=== PATIENT | male | born 1955 | race Caucasian/White ===

== ENCOUNTER 2017-07-05 07:14 | Day surgery (SDC) | payer OTHER ==
[2017-07-05 07:38] VITALS: BMI 28.5
--- NOTE | 2017-07-05 08:27 | PDOC ---
History of Present Illness <Kathryn Juárez - Last Filed: 07/05/17 10:32> - History of Present Illness Initial Comments: 07/05/17 10:49 The patient is a 62 year old male, with a significant past medical history of CAD s/p stents x2 (on aspirin and Plavix), hyperlipidemia, who presents to the emergency department sent by Dr. Eduardo Love for surgical repair of his umbilical hernia. He states the hernia has gotten larger in size since the summer of this year. He also reports experiencing intermittent discomofort more frequently this year. He denies any pain at this time. He denies chest pain, shortness of breath, headache and dizziness. He denies fever, chills, nausea, vomit, diarrhea and constipation. He denies dysuria, frequency, urgency and hematuria. Allergies: NKDA Past surgical history: tonsillectomy, stents x2 Social history: social EtOH consumption. Denies tobacco use. PCP - Dr. Madrigal <Genoveva Oh - Last Filed: 07/05/17 11:00> - General Chief Complaint: Pain Stated Complaint: admission, O.R HERNIA Time Seen by Provider: 07/05/17 08:27 Past History <Kathryn Juárez - Last Filed: 07/05/17 10:32> - Past Medical History Cardiac Disorders: Yes (CAD) COPD: No Hypercholesterolemia: Yes - Surgical History Cardiac Surgery: Yes (STENT) - Immunization History Td Vaccination: (unknown) TDAP Vaccination: No - Suicide/Smoking/Psychosocial Hx Smoking Status: No Smoking History: Former smoker Have you smoked in the past 12 months: No Number of Cigarettes Smoked Daily: 0 Information on smoking cessation initiated: No Hx Alcohol Use: No Drug/Substance Use Hx: No Substance Use Type: None <Genoveva Oh - Last Filed: 07/05/17 11:00> - Past Medical History Allergies/Adverse Reactions: Allergies Allergy/AdvReac Type Severity Reaction Status Date / Time No Known Allergies Allergy Verified 07/05/17 07:28 Home Medications: Ambulatory Orders Aspirin [ASA -] 81 mg PO DAILY 07/05/17 Rosuvastatin Calcium [Crestor] 40 mg PO DAILY 07/05/17 Review of Systems - Review of Systems Comments:: 07/05/17 10:50 GENERAL/CONSTITUTIONAL: No fever or chills. No weakness. HEAD, EYES, EARS, NOSE AND THROAT: No change in vision. No ear pain or discharge. No sore throat. GASTROINTESTINAL: (+) umbilical hernia. No nausea, vomiting, diarrhea or constipation. GENITOURINARY: No dysuria, frequency, or change in urination. CARDIOVASCULAR: No chest pain or shortness of breath. RESPIRATORY: No cough, wheezing, or hemoptysis. MUSCULOSKELETAL: No joint or muscle swelling or pain. No neck or back pain. SKIN: No rash NEUROLOGIC: No headache, vertigo, loss of consciousness, or change in strength/ sensation. ENDOCRINE: No increased thirst. No abnormal weight change. HEMATOLOGIC/LYMPHATIC: No anemia, easy bleeding, or history of blood clots. ALLERGIC/IMMUNOLOGIC: No hives or skin allergy. <Genoveva Oh - Last Filed: 07/05/17 11:00> *Physical Exam - Vital Signs Last Vital Signs Temp Pulse Resp BP Pulse Ox 98.0 F 60 18 144/76 97 07/05/17 07:28 07/05/17 07:28 07/05/17 07:28 07/05/17 07:28 07/05/17 07:28 <Kathryn Juárez - Last Filed: 07/05/17 10:32> - Vital Signs Last Vital Signs Temp Pulse Resp BP Pulse Ox 98.0 F 60 18 144/76 97 07/05/17 07:28 07/05/17 07:28 07/05/17 07:28 07/05/17 07:28 07/05/17 07:28 - Physical Exam Comments: 07/05/17 10:51 GENERAL: Awake, alert, and fully oriented, in no acute distress HEAD: No signs of trauma EYES: PERRLA, EOMI, sclera anicteric, conjunctiva clear ENT: Auricles normal inspection, hearing grossly normal, nares patent, oropharynx clear without exudates. Moist mucosa NECK: Normal ROM, supple, no lymphadenopathy, JVD, or masses LUNGS: Breath sounds equal, clear to auscultation bilaterally. No wheezes, and no crackles HEART: Regular rate and rhythm, normal S1 and S2, no murmurs, rubs or gallops ABDOMEN: (+) soft, reducible umbilical hernia without evidence of incarceration. Soft, nontender, normoactive bowel sounds. No guarding, no rebound. EXTREMITIES: Normal range of motion, no edema. No clubbing or cyanosis. No cords, erythema, or tenderness BACK: No midline spinal tenderness in cervical/thoracic/lumbar region NEUROLOGICAL: Normal speech, cranial nerves intact, negative pronator drift, 5/ 5 strength in all 4 extremities, normal sensation to light touch in all 4 extremities, normal cerebellar exam, normal gait, normal reflexes and tone SKIN: Warm, Dry, normal turgor, no rashes or lesions noted. <Genoveva Oh - Last Filed: 07/05/17 11:00> Heart Score/ECG Review #1 07/05/17 10:57 Twelve-lead EKG was performed and reviewed by me. Normal sinus rhythm, rate 63. Normal axis. No ST elevations. <Genoveva Oh - Last Filed: 07/05/17 11:00> ED Treatment Course - LABORATORY CBC & Chemistry Diagram: 07/05/17 08:23 07/05/17 08:23 <Kathryn Juárez - Last Filed: 07/05/17 10:32> - LABORATORY CBC & Chemistry Diagram: 07/05/17 08:23 07/05/17 08:23 - RADIOLOGY Radiology Studies Ordered: Category Date Time Status CHEST X-RAY PORTABLE* [RAD] Stat Radiology 07/05/17 08:01 Taken <Genoveva Oh - Last Filed: 07/05/17 11:00> Medical Decision Making - Medical Decision Making 07/05/17 08:35 Dr. Love was paged via phone answering service at this time requesting a call back for doctor to doctor regarding this patient's admission for surgical hernia repair. 07/05/17 09:00 Dr. Love was paged at the office requesting a call back for doctor to doctor consult. The supervisor tank cleaning assured me she will inform Dr. Love to call as soon as possible. 07/05/17 10:34 Dr. Love was called on his cell phone and a voice mail was left requesting a call back regarding this patient. <Kathryn Juárez - Last Filed: 07/05/17 10:32> - Medical Decision Making 07/05/17 10:51 62-year-old male presents for admission for hernia repair. Vitals unremarkable. Exam with soft reducible hernia with no skin changes and no abdominal distention. Will admit to Dr. Love for further management. Case discussed in detail with admitting physician including history, physical exam and ancillary studies. Admitting physician has assumed care for the patient, will follow all pending diagnostics and will complete the evaluation and treatment. <Genoveva Oh - Last Filed: 07/05/17 11:00> *DC/Admit/Observation/Transfer - Attestations Scribe Attestion: 07/05/17 08:37 Documentation prepared by Kathryn Juárez, acting as medical education coordinator for Genoveva Oh MD, <Kathryn Juárez - Last Filed: 07/05/17 10:32> - Discharge Dispostion Admit: Yes - Attestations Physician Attestion: 07/05/17 10:54 I, Dr. Genoveva Oh MD, attest that this document has been prepared under my direction and personally reviewed by me in its entirety. I further attest, that it accurately reflects all work, treatment, procedures and medical decision -making performed by me. <Genoveva Oh - Last Filed: 07/05/17 11:00> Diagnosis at time of Disposition: Umbilical hernia - Discharge Dispostion Condition at time of disposition: Stable - Referrals Referrals: Yung Madrigal MD [Primary Care Provider] - - Patient Instructions - Post Discharge Activity
[2017-07-05 09:11] LABS: BASOPHIL 2.5 % (0-2.0); EOSINOPHIL 4.4 % (0-4.5); MCH 30.1 pg (25.7-33.7); MEAN CELL VOLUME 91.2 fl (80-96); MEAN PLT VOLUME 9.2 fl (7.5-11.1); NEUTROPHILS 51.9 % (42.8-82.8); PLATELET COUNT 183 K/MM3 (134-434); RDW 13.8 % (11.9-15.9); WHITE BLOOD COUNT 5.8 K/mm3 (4.0-10.0)
[2017-07-05 09:23] LABS: INR 1.01 (0.82-1.09); PROTHROMBIN TIME (PATIENT) 11.4 SEC (9.98-11.88)
[2017-07-05 09:26] LABS: ACTIVATED PTT 30.5 SECONDS (26.9-34.4)
[2017-07-05 09:52] LABS: ALBUMIN 3.9 g/dl (3.4-5.0); ANION GAP 6 (8-16); BILIRUBIN,TOTAL 0.3 mg/dL (0.2-1.0); CO2 30 mmol/L (21-32); CREATININE 0.8 mg/dL (0.7-1.3); GLUCOSE,RANDOM 83 mg/dL (74-106); SGOT/AST 40 U/L (15-37); SGPT/ALT 57 U/L (12-78); TOT PROT 7.3 g/dl (6.4-8.2)
[2017-07-05 09:53] LABS: ALK PHOS 56 U/L (45-117)
[2017-07-05] MEDS ORDERED: BUPIVACAINE HCL/PF 0.5% (5MG/ML) 10 ML VIAL ONE (10:30)
[2017-07-05] MEDS ORDERED: fentaNYL CITRATE 250 MCG/5 ML VIAL ONE (11:02)
[2017-07-05] MEDS ORDERED: PROPOFOL 20 ML ONE (11:02)
[2017-07-05] MEDS ORDERED: MIDAZOLAM HCL 2 MG/2 ML SINGLE DOSE VIAL ONE ×2 (11:02)
[2017-07-05] MEDS ORDERED: SUCCINYLCHOLINE CHLORIDE 200 MG/10 ML VIAL ONE (11:08)
[2017-07-05] MEDS ORDERED: ROCURONIUM BROMIDE 50 MG/5 ML VIAL ONE ×2 (11:09→11:44)
--- NOTE | 2017-07-05 11:13 | CONSULT ---
Consult Consult Specialty:: Surgery Reason for Consultation:: Supraumbilical hernia with pain - History of Present Illness Chief Complaint: Pain near umbilical hernia - History Source History Provided By: Patient Limitations to Obtaining History: No Limitations - Alcohol/Substance Use Hx Alcohol Use: No - Smoking History Smoking history: Former smoker Have you smoked in the past 12 months: No Aproximately how many cigarettes per day: 0 Home Medications - Allergies Allergies/Adverse Reactions: Allergies Allergy/AdvReac Type Severity Reaction Status Date / Time No Known Allergies Allergy Verified 07/05/17 07:28 - Home Medications Home Medications: Ambulatory Orders Aspirin [ASA -] 81 mg PO DAILY 07/05/17 Rosuvastatin Calcium [Crestor] 40 mg PO DAILY 07/05/17 Family Disease History - Family Disease History Family History: Unremarkable Review of Systems - Review of Systems Constitutional: denies: Chills, Fever HENT: reports: No Symptoms Neck: reports: No Symptoms Cardiovascular: denies: Chest Pain Respiratory: denies: Cough Gastrointestinal: reports: Abdominal Pain. denies: Diarrhea Neurological: denies: Change in LOC Pain Intensity: 3 Physical Exam Vital Signs: Vital Signs Temperature 98.0 F 07/05/17 07:28 Pulse Rate 59 L 07/05/17 10:30 Respiratory Rate 18 07/05/17 10:30 Blood Pressure 155/86 07/05/17 10:30 O2 Sat by Pulse Oximetry (%) 97 07/05/17 10:30 Constitutional: No: No Distress Eyes: Yes: WNL HENT: Yes: WNL Neck: Yes: Supple Cardiovascular: Yes: Regular Rate and Rhythm Respiratory: Yes: CTA Bilaterally Gastrointestinal: Yes: Soft, Tenderness (+ moderate supraaumbilcal tenderness, no erythema, + incarcarated supraumbilcal hernia- partially but not fully reducible) Extremities: Yes: WNL Neurological: Yes: Alert, Oriented Labs: CBC, BMP 07/05/17 08:23 07/05/17 08:23 Problem List - Problems (1) Supraumbilical hernia Code(s): K43.9 - VENTRAL HERNIA WITHOUT OBSTRUCTION OR GANGRENE (2) Incarcerated ventral hernia Code(s): K46.0 - UNSP ABDOMINAL HERNIA WITH OBSTRUCTION, WITHOUT GANGRENE Assessment/Plan Incarcerated supraumbilical hernia For robotic possible open repair with possible mesh
[2017-07-05] MEDS ORDERED: ceFAZolin SODIUM 1 GM VIAL ONE (11:36)
[2017-07-05] MEDS ORDERED: ceFAZolin SODIUM 1 GM VIAL IVPB ONE (12:03)
[2017-07-05] MEDS ORDERED: hydrALAZINE HCL 20 MG/ML VIAL ONE (12:26)
[2017-07-05] MEDS ORDERED: GLYCOPYRROLATE 0.2 MG/1 ML VIAL ONE (12:43)
[2017-07-05] MEDS ORDERED: NEOSTIGMINE METHYLSULFATE 0.5 MG/ML - 10 ML MDV ONE (12:43)
[2017-07-05] MEDS ORDERED: BUPIVACAINE HCL/PF 0.5% (5MG/ML) 10 ML VIAL IJ ONE (12:47)
[2017-07-05] MEDS ORDERED: LIDOCAINE HCL/PF 2% SDV 5ML VIAL ONE (13:30)
--- NOTE | 2017-07-05 13:51 | SURG ---
Surgery Solderer Dipper Note Solderer Dipper: Mathew Abbasi PA-C Date of Service: 07/05/17 Diagnosis: Incarcerated ventral hernia (contents viable omentem) Procedure: Robotic ventral hernia repair with mesh I was present for the entirety of the operative procedure. For further detail, please refer to operative report. Visit type - Case Type Case Type: ED Admission - Emergency Emergency Visit: Yes Care time: The patient presented to the Emergency Department on the above date and was hospitalized for further evaluation of their emergent condition. - New patient This patient is new to me today: Yes Date on this admission: 07/05/17
[2017-07-05] MEDS ORDERED: ONDANSETRON 4 MG/2 ML VIAL IVPUSH PRN ×2 (13:53→14:08)
[2017-07-05] MEDS ORDERED: LACTATED RINGERS SOLUTION 1,000 ML IV SCH (14:00)
--- NOTE | 2017-07-05 14:06 | OP ---
Operative Note - Note: Operative Date: 07/05/17 Pre-Operative Diagnosis: Incarcerated supraaumbilical hernia Operation: Robotic repair of incarcerated supraumbilical hernia with mesh Findings: Incarcerated omentum Post-Operative Diagnosis: Same as Pre-op Surgeon: Eduardo Love Grain Drier: Mathew Abbasi Anesthesia: General Specimens Removed: hernia content Estimated Blood Loss (mls): 20 Operative Report Dictated: Yes
[2017-07-05] MEDS ORDERED: ACETAMINOPHEN 325 MG TABLET (FP) PO PRN (14:08)
[2017-07-05] MEDS ORDERED: D5-1/2NS+20 MEQ KCL - 20 MEQ/1,000 ML INFUS.BAG IV SCH (14:15)
[2017-07-05] MEDS: HYDROmorphone HCL CARPU-JECT 1 MG/1 ML DISP.SYRIN IVPB PRN ×4 (14:35→23:32)
[2017-07-05] MEDS ORDERED: HYDROmorphone HCL CARPU-JECT 2 MG/1 ML DISP.SYRIN ONE (14:36)
--- NOTE | 2017-07-05 14:39 | SPEC ---
DATE OF OPERATION: 07/05/2017 SURGEON: Eduardo Love MD DIRECTOR OF CATH LAB: KATHY Arora PREOPERATIVE DIAGNOSIS: Incarcerated supraumbilical hernia. POSTOPERATIVE DIAGNOSIS: Incarcerated supraumbilical hernia with incarcerated omentum. OPERATION: Robotic repair of incarcerated supraumbilical hernia with mesh. SPECIMEN: Hernia contents. ESTIMATED BLOOD LOSS: 20 mL. DRAINS: None. ANESTHESIA: GET. MESH: 12 cm circular Symbotex mesh. REASON FOR PROCEDURE: This 62-year-old gentleman presented to the emergency room with pain and a supraumbilical hernia defect. It was unable to be manually reduced and therefore he was consented for a robotic, possible open repair of supraumbilical/ventral/umbilical hernia with mesh. RISKS AND BENEFITS: The risks and benefits of a robotic, possible open umbilical/ventral hernia repair with possible mesh were explained. These included bleeding, infection, recurrence of hernia, [place], DVT, PE, new hernia, injury to surrounding structures including the colon, bowel, bladder, spleen, other intra-abdominal organs, vessel injury, nerve injury, mesh infection and as some of the possible complications. The patient understood and signed informed consent. FINDINGS: Incarcerated omentum at the supraumbilical hernia defect. A 12-cm Symbotex mesh was used and secured. DESCRIPTION OF PROCEDURE: The patient was placed supine on the operating room table. The patient underwent general endotracheal intubation. The arms were tucked at the side and the patient was placed on the beanbag device. The abdomen was prepped and draped in the usual sterile fashion. A time-out was performed. An incision was made in the left upper quadrant and entrance into the abdominal cavity was obtained using an 8-mm robotic optical trocar under direct visualization with the laparoscope. Pneumoperitoneum was established. Subsequently, an 8-mm robotic trocar was placed in the left lateral abdominal wall and another 8-mm trocar placed in the left lower quadrant. The patient was placed in right lateral decubitus position. The robot was brought over the field and docked. Dissection was performed at the console. All adherent omentum and bowel was carefully freed from the anterior abdominal wall. Meticulous dissection was performed until this was accomplished. Hemostasis was identified. The hernia sac was then identified and carefully dissected. Once fully dissected, a Symbotex mesh of appropriate size was chosen, irrigated and inserted into the abdominal cavity. This was done after a 2-0 Prolene suture was placed in the central part of the mesh and a loose knot tied on the side that would be adherent to the abdominal wall. A stab wound was then made in the central part of the hernia defect and a suture passer used to grasp the Prolene suture. This allowed the mesh to be approximated to the abdominal wall over the hernia defect. A hemostat was then used to grasp the suture and again keep the mesh approximated to the abdominal wall. The hernia defect was noted to be fully covered by the mesh. The mesh was secured circumferentially using 2-0 V-Loc sutures. Again the mesh was noted to be in good position and again hemostasis was identified. The hernia content that was dissected was removed out of the field through the left upper quadrant trocar site. This was then closed with a Daniel-Shavonne device and 0 Vicryl suture. All needles were removed and the count was confirmed to be correct. The robotic instruments were removed. The robot was undocked and removed from the operative field. The patient was placed supine. Pneumoperitoneum was desufflated. All trocars were removed. All incision sites were irrigated and Marcaine was injected in all incision sites. Hemostasis was noted at all incision sites. All skin incisions were closed using 4-0 Biosyn. Sterile dressings were applied. The patient tolerated the procedure well and was transferred to the recovery room in stable condition. Min [id number]
[2017-07-05] MEDS: ACETAMINOPHEN 1000 MG/100 ML VIAL (NON FORMULARY) IVPB ONE ×2 (15:40→17:53)
[2017-07-05] MEDS ORDERED: ACETAMINOPHEN INJECTION 100 ML IVPB ONE (16:00)
--- NOTE | 2017-07-05 17:04 | HP ---
Admitting History and Physical - Admission Chief Complaint: Abdominal pain and elevated blood pressure History of Present Illness: 62 male presented to the ER with an incarcerated supraumbilical hernia Noted in the ER and in the holding area to have elevated blood pressure of 140- 170/50-70s Controlled by anesthesia preop Underwent emergent robotic repair of incarcerted umbilical hernia with mesh Blood pressure noted to still be elevated postop 150s/60s and patient with pain not controlled- needs IV pain medication Admitted for pain control and hypertension Cardiology consulted History Source: Patient Limitations to Obtaining History: No Limitations - Past Medical History Cardiovascular: Yes: CAD, HTN Gastrointestinal: Yes: Other (Incarcerated supraumbilical hernia) - Smoking History Smoking history: Former smoker Have you smoked in the past 12 months: No Aproximately how many cigarettes per day: 0 - Alcohol/Substance Use Hx Alcohol Use: No Home Medications - Allergies Allergies/Adverse Reactions: Allergies Allergy/AdvReac Type Severity Reaction Status Date / Time No Known Allergies Allergy Verified 07/05/17 07:28 - Home Medications Home Medications: Ambulatory Orders Aspirin [ASA -] 81 mg PO DAILY 07/05/17 Docusate Sodium [Colace -] 100 mg PO TID #90 capsule 07/05/17 Oxycodone HCl/Acetaminophen [Percocet 5-325 mg Tablet] 1 - 2 tab PO Q6H #28 tab MDD 4 07/05/17 Rosuvastatin Calcium [Crestor] 40 mg PO DAILY 07/05/17 Family Disease History - Family Disease History Family History: Unremarkable Review of Systems - Review of Systems Constitutional: denies: Chills, Fever HENT: reports: No Symptoms Cardiovascular: denies: Chest Pain Respiratory: denies: Cough Gastrointestinal: reports: Abdominal Pain Neurological: denies: Change in LOC Pain Intensity: 4 Physical Examination Vital Signs: Vital Signs Temperature 97.8 F 07/05/17 14:05 Pulse Rate 83 07/05/17 15:05 Respiratory Rate 16 07/05/17 15:05 Blood Pressure 142/69 07/05/17 15:05 O2 Sat by Pulse Oximetry (%) 96 07/05/17 15:05 Constitutional: Yes: Calm HENT: Yes: WNL Neck: Yes: Supple Cardiovascular: Yes: Regular Rate and Rhythm Respiratory: Yes: Regular Gastrointestinal: Yes: Soft, Other (Incisional tenderness, postop tenderness near hernia repair) Extremities: Yes: WNL Neurological: Yes: Alert, Oriented Labs: CBC, BMP 07/05/17 08:23 07/05/17 08:23 Problem List - Problems (1) Supraumbilical hernia Code(s): K43.9 - VENTRAL HERNIA WITHOUT OBSTRUCTION OR GANGRENE (2) Incarcerated ventral hernia Code(s): K46.0 - UNSP ABDOMINAL HERNIA WITH OBSTRUCTION, WITHOUT GANGRENE (3) Hypertension Code(s): I10 - ESSENTIAL (PRIMARY) HYPERTENSION Qualifiers: Hypertension type: unspecified Qualified Code(s): I10 - Essential (primary ) hypertension (4) Pain, postoperative, acute Code(s): G89.18 - OTHER ACUTE POSTPROCEDURAL PAIN Assessment/Plan Admitted for Pain control and hypertension Cardiology consulted IV pain medication
--- NOTE | 2017-07-05 17:54 | EKG ---
Test Reason : Blood Pressure : / mmHG Vent. Rate : 063 BPM Atrial Rate : 063 BPM P-R Int : 154 ms QRS Dur : 090 ms QT Int : 422 ms P-R-T Axes : 050 -04 043 degrees QTc Int : 431 ms SINUS RHYTHM WITH PREMATURE ATRIAL COMPLEXES MINIMAL VOLTAGE CRITERIA FOR LVH, MAY BE NORMAL VARIANT BORDERLINE ECG NO PREVIOUS ECGS AVAILABLE REPEAT EKG IF CLINICALLY INDICATED Confirmed by FIFI BELTRAN MD ([id number]) on 07/05/2017 5:53:57 PM Referred By: Confirmed By:FIFI BELTRAN MD
[2017-07-05] MEDS: MAG HYDROX/AL HYDROX/SIMETH 30 ML UNIT-DOSE CUP PO PRN (23:57)
[2017-07-06] MEDS ORDERED: SIMETHICONE 80 MG TAB.CHEW (FP) PO PRN (02:27)
[2017-07-06] MEDS ORDERED: HYDROmorphone HCL CARPU-JECT 1 MG/1 ML DISP.SYRIN IVPB ONE (02:30)
[2017-07-06] MEDS: MAG HYDROX/AL HYDROX/SIMETH 30 ML UNIT-DOSE CUP PO PRN (05:24)
[2017-07-06] MEDS: HYDROmorphone HCL CARPU-JECT 1 MG/1 ML DISP.SYRIN IVPB PRN ×2 (05:28→09:39)
[2017-07-06 07:31] LABS: BASOPHIL 0.6 % (0-2.0); EOSINOPHIL 0.4 % (0-4.5); MCH 30.1 pg (25.7-33.7); MCHC 32.6 g/dl (32.0-35.9); MEAN CELL VOLUME 92.1 fl (80-96); MEAN PLT VOLUME 9.3 fl (7.5-11.1); NEUTROPHILS 82.6 % (42.8-82.8); PLATELET COUNT 167 K/MM3 (134-434); RDW 13.9 % (11.9-15.9); WHITE BLOOD COUNT 12.5 K/mm3 (4.0-10.0)
[2017-07-06 07:51] VITALS: BP 154/77; PULSE 65; TEMP 99.8
[2017-07-06 07:55] LABS: ANION GAP 6 (8-16); CALCIUM 8.8 mg/dL (8.5-10.1); CO2 32 mmol/L (21-32); GLUCOSE,RANDOM 119 mg/dL (74-106)
[2017-07-06 07:57] LABS: CREATININE 0.9 mg/dL (0.7-1.3)
[2017-07-06] MEDS ORDERED: chlorproMAZINE HCL 25 MG TABLET PO ONE (08:27)
--- NOTE | 2017-07-06 08:27 | DS ---
Physical Exam: SUBJECTIVE: Patient seen and examined. No acute events since surgery per RN notes. Doing well. C/o constant hiccups. Dr. Love called in script for Simethicone and Mylanta for the "gas pains". He's been oob and ambulating unassisted. Voiding spontaneously. Wearing his ABD binder as ordered. Pre-op, patient had elevated SBP. No history of HTN. Intraop as well as Post-op he had elevated SBP. Awaiting Cardio Consult from Dr. Monge prior to discharge. Denies SOLARES, dizzy, n/v/f/c, CP or SOB. OBJECTIVE: Vital Signs Temperature 99.8 F H 07/06/17 07:50 Pulse Rate 65 07/06/17 07:50 Respiratory Rate 22 07/06/17 07:50 Blood Pressure 154/77 07/06/17 07:50 O2 Sat by Pulse Oximetry (%) 98 07/05/17 20:26 PHYSICAL EXAM GENERAL: The patient is awake, alert, and fully oriented, in no acute distress. HEAD: Normal with no signs of trauma. EYES: PERRL, extraocular movements intact, sclera anicteric, conjunctiva clear. NECK: Trachea midline, full range of motion, supple. LUNGS: CTA bilat anteriroly HEART: RRR ABDOMEN: all surgical ports c/d/i. EXTREMITIES: 2+ pulses, warm, well-perfused, no edema. PSYCH: Normal mood, normal affect. SKIN: Warm, dry, normal turgor, no rashes or lesions noted. LABS CBC, BMP 07/06/17 06:30 07/06/17 06:30 HOSPITAL COURSE: Date of Admission:07/05/17 Date of Discharge: 07/06/17 The patient was admitted to the Med-Surg Unit after a repair of his supraumbilical hernia. Now, s/p robotic repair of incarcerated supraumbilical hernia with mesh. The day of surgery, the patient ambulated the hallways with assistance. Narcotic and non-narcotic pain management control was achieved with an oral and IV approach. POD #1, patient c/o hiccups. Mylanta, Simethicone attempted without success. Finally, after Thorazine 25mg PO x1...resolution! Patient's rise in wbc is to be expected after surgery and is normal. Brittney- operative IV ABX were administered. DVT prophylaxis was achieved with SCDs and early ambulation. Due to patient's elevated SBP, a consult was placed with Dr. Eduardo Monge ( Cardiology) . Patient states he can't wait around all day and is refusing to be seen. Wants to be discharged. States he will follow-up with his GCP regarding his blood pressure. Advised he should wait for Cardio and made aware of risks associated with HTN. Understands and still wants to go home. The patient ambulated without assistance so no services were recommended upon discharge. [place] [employer] checked prior to escribe of any narcotics for pain management. Report was requested by: Mathew Abbasi | Reference #: [id number]. The discharge instructions and an oral pain management plan were reviewed with the patient. All questions answered. Above plan discussed with Dr. Love and agreed. Minutes to complete discharge: 20 Visit type - Case Type Case Type: ED Admission - New patient This patient is new to me today: Yes Date on this admission: 07/06/17
[2017-07-06] MEDS ORDERED: PT OWN MED DRAWER 7, Y5N ONE ×2 (09:21→12:54)
--- NOTE | 2017-07-06 10:00 | PN ---
Progress Note (short form) - Note Progress Note: Anesthesia Post op Pt seen and examined S:alert and awake hick ups bothering O; Vital Signs Temperature 99.8 F H 07/06/17 07:50 Pulse Rate 65 07/06/17 07:50 Respiratory Rate 22 07/06/17 07:50 Blood Pressure 154/77 07/06/17 07:50 O2 Sat by Pulse Oximetry (%) 98 07/05/17 20:26 CBC, BMP 07/06/17 06:30 07/06/17 06:30 A/P: Current Active Problems Hypertension (Acute) Incarcerated ventral hernia (Acute) Pain, postoperative, acute (Acute) Supraumbilical hernia (Acute) Umbilical hernia (Acute) s/p robotic umb hernia repair Doing well post op Continue current care [place] MD
[2017-07-06] MEDS ORDERED: oxyCODONE HCL 5 MG TABLET PO PRN (10:22)
[2017-07-06] MEDS ORDERED: ACETAMINOPHEN 325 MG TABLET (FP) PO PRN (10:22)
--- NOTE | 2017-07-06 15:51 | PATH ---
Surgical Pathology Report Patient Name: LEANDRO AGEE [facility]. Rec. #: [id number] /Age/Gender: 1955 (Age: 62) / M Account: [id number] Location: AMBULATORY SURG Taken: 07/05/2017 Received: 07/05/2017 Reported: 07/06/2017 Physicians: Eduardo Love M.D. Specimen(s) Received HERNIA CONTENT Clinical History Preoperative diagnosis: Umbilical hernia Postoperative diagnosis: Same Final Diagnosis SOFT TISSUE, UMBILICAL, EXCISION: FIBROMEMBRANOUS TISSUE CONSISTENT WITH HERNIA SAC, AND BENIGN ADIPOSE TISSUE. Electronically Signed Bernardo Mcfadden M.D. Gross Description Received in formalin labeled "hernia contents," is a 6.5 x 5.0 x 1.4 cm portion of pink-bah fibromembranous tissue with attached fat, consistent with a hernia sac. Aircraft Load Controller sections are submitted in one cassette. /07/05/201707/05/2017
== END 2017-07-06 13:38 | disposition home or self-care (01) ==
LOC: JER 07:14 → JASUSAT 11:00 → J6S 17:08 → JASUSAT 07-06 13:38
PROVIDERS: ATTEND Surgery
PROC: 8E0W4CZ Robotic Assisted Procedure of Trunk Region, Percutaneous Endoscopic Approach (ICD-10-PCS; 2017-07-05)
PROC: 0WUF4JZ Supplement Abdominal Wall with Synthetic Substitute, Percutaneous Endoscopic Approach (ICD-10-PCS; principal; 2017-07-05 11:00)
DX: K42.0 Umbilical hernia with obstruction, without gangrene (principal)
CPT/HCPCS: 49653; S2900; 36415; 71010-TC; 80048; 80053; 85025; 85610; 85730; 86850; 86900; 86901; 88302-TC; 93005; 93010; 94010; 94760; 99285-25